=== PATIENT | female | born 1950 | race Hispanic/Latino ===

== ENCOUNTER → 2024-05-14 | Outpatient (REF) | payer MEDICARE | LOC: MAMMO 08:51 | PROVIDERS: ATTEND Family Medicine | DX: Z12.31 Encounter for screening mammogram for malignant neoplasm of breast (principal) | CPT/HCPCS: 77067 ==

== ENCOUNTER 2024-10-16 16:30 | Inpatient (IN) | payer MEDICARE ==
[~2024-10-16] VITALS: Ht 149.9 cm; Wt 40.4 kg
[2024-10-16 17:51] LABS: BASOPHILS # (AUTO) 0.1 (0.0-0.1); EOSINOPHILS # (AUTO) 0.1 (0.0-0.4); EOSINOPHILS % 1.8 % (0.0-6.0); HEMATOCRIT 26.3 % (34.2-44.1); HEMOGLOBIN 8.8 g/dL (12.0-16.0); LYMPHOCYTES # (AUTO) 1.2 (1.0-3.2); LYMPHOCYTES % 15.3 % (18.0-39.1); MEAN CORPUSCULAR HEMOGLOBIN 30.7 pg (28-32); MEAN CORPUSCULAR HGB CONC 33.5 g/dL (31-35); MEAN CORPUSCULAR VOLUME 91.6 fL (81-99); MONOCYTES # (AUTO) 0.6 (0.2-0.8); MONOCYTES % 7.9 % (4.4-11.3); NEUTROPHILS # (AUTO) 5.9 (2.1-6.9); NEUTROPHILS % 73.4 % (38.7-80.0); PLATELET COUNT 233 x10e3/uL (140-360); RED BLOOD COUNT 2.87 x10e6/uL (3.6-5.1); WHITE BLOOD COUNT 7.97 x10e3/uL (4.8-10.8)
[2024-10-16 18:11] LABS: ALBUMIN/GLOBULIN RATIO 2.4 (0.8-2.0); BILIRUBIN,TOTAL 1.3 mg/dL (0.2-1.2); CREATININE, SERUM 1.35 mg/dL (0.57-1.11); TOTAL PROTEIN 5.7 g/dL (6.5-8.1)
[2024-10-16 18:50] VITALS: PULSE 95; RESP 17; TEMP 98.2
[2024-10-16 19:58] LABS: CREATINE KINASE 49 IU/L (29-168)
[2024-10-16 20:00] VITALS: BP 110/68; PULSE 83; RESP 18; TEMP 98; O2SAT 100
[2024-10-16 20:09] LABS: TROPONIN I < 0.001 ng/mL (0-0.300)
[2024-10-16] MEDS: SODIUM CHLORIDE 0.9% 1000ML 1,000 ML IV SCH (20:20)
[2024-10-16 21:30] VITALS: BP 114/68; PULSE 86; RESP 16; TEMP 98.2; O2SAT 100
[2024-10-16] MEDS ORDERED: LOSARTAN POTASS25 MG PO (23:52)
[2024-10-17] VITALS (12 sets, daily range): BP systolic 101–138; BP diastolic 55–72; PULSE 78–96; RESP 17–18; TEMP 97.6–98.6; O2SAT 97–100
[2024-10-17 01:56] LABS: CREATINE KINASE 28 IU/L (29-168)
[2024-10-17 02:06] LABS: TROPONIN I < 0.001 ng/mL (0-0.300)
[2024-10-17 07:46] LABS: BASOPHILS # (AUTO) 0.1 (0.0-0.1); BASOPHILS % 0.9 % (0.0-1.0); EOSINOPHILS # (AUTO) 0.2 (0.0-0.4); EOSINOPHILS % 2.7 % (0.0-6.0); HEMATOCRIT 25.1 % (34.2-44.1); HEMOGLOBIN 8.1 g/dL (12.0-16.0); LYMPHOCYTES # (AUTO) 0.8 (1.0-3.2); LYMPHOCYTES % 15.1 % (18.0-39.1); MEAN CORPUSCULAR HEMOGLOBIN 30.7 pg (28-32); MEAN CORPUSCULAR HGB CONC 32.3 g/dL (31-35); MEAN CORPUSCULAR VOLUME 95.1 fL (81-99); MONOCYTES # (AUTO) 0.5 (0.2-0.8); MONOCYTES % 8.2 % (4.4-11.3); NEUTROPHILS # (AUTO) 4.1 (2.1-6.9); NEUTROPHILS % 72.6 % (38.7-80.0); PLATELET COUNT 187 x10e3/uL (140-360); RED BLOOD COUNT 2.64 x10e6/uL (3.6-5.1); WHITE BLOOD COUNT 5.58 x10e3/uL (4.8-10.8)
[2024-10-17 08:01] LABS: ALBUMIN 3.2 g/dL (3.5-5.0); ALBUMIN/GLOBULIN RATIO 2.5 (0.8-2.0); BILIRUBIN,TOTAL 1.2 mg/dL (0.2-1.2); CALCIUM 10.6 mg/dL (8.4-10.2); CREATININE, SERUM 1.31 mg/dL (0.57-1.11); TOTAL PROTEIN 4.5 g/dL (6.5-8.1)
[2024-10-17] MEDS ORDERED: HYDRALAZINE HCL 20 MG/ML VIAL IV PRN (10:15)
[2024-10-17] MEDS: POTASSIUM CHLORIDE 20 MEQ TAB CR PO ONE (11:56)
[2024-10-17] MEDS: FUROSEMIDE INJ 10 MG/ML 4 ML VIAL IV ONE (11:56)
[2024-10-17 17:24] LABS: CREATINE KINASE 29 IU/L (29-168)
[2024-10-17 17:37] LABS: TROPONIN I < 0.001 ng/mL (0-0.300)
[2024-10-17 22:17] LABS: BILIRUBIN,URINE NEGATIVE (NEGATIVE); CLARITY,URINE CLEAR (CLEAR); COLOR,URINE YELLOW (YELLOW); GLUCOSE, URINE NEGATIVE (NEGATIVE); KETONES,URINE NEGATIVE (NEGATIVE); LEUKOCYTE ESTERASE ,URINE NEGATIVE (NEGATIVE); NITRITE,URINE NEGATIVE (NEGATIVE); PH,URINE 5.5 (5 - 7); PROTEIN,URINE DIPSTICK NEGATIVE (NEGATIVE); URINE UROBILINOGEN 0.2 mg/dL (0.2 - 1)
[2024-10-17 22:26] LABS: BACTERIA,URINE FEW /HPF; EPITHELIAL CELLS,URINE FEW /LPF
[2024-10-17 22:27] LABS: MUCUS,URINE FEW
[2024-10-17 22:31] LABS: CREATININE,URINE RANDOM 25.73 mg/dL (47-110); SODIUM,URINE 97 mmol/L
[2024-10-17 22:32] LABS: TOTAL PROTEIN, URINE < 6.8 mg/dL (1-14)
[2024-10-17 22:57] LABS: EOSINOPHIL SMEAR,URINE NONE SEEN (NONE SEEN)
[2024-10-18 03:01] VITALS: BP 106/62; PULSE 87; RESP 18; TEMP 98.7; O2SAT 100
[2024-10-18 05:50] LABS: BASOPHILS % 0.5 % (0.0-1.0); EOSINOPHILS # (AUTO) 0.2 (0.0-0.4); EOSINOPHILS % 2.5 % (0.0-6.0); HEMATOCRIT 23.8 % (34.2-44.1); HEMOGLOBIN 7.8 g/dL (12.0-16.0); LYMPHOCYTES % 12.2 % (18.0-39.1); MEAN CORPUSCULAR HEMOGLOBIN 30.4 pg (28-32); MEAN CORPUSCULAR HGB CONC 32.8 g/dL (31-35); MEAN CORPUSCULAR VOLUME 92.6 fL (81-99); MONOCYTES # (AUTO) 0.6 (0.2-0.8); MONOCYTES % 7.4 % (4.4-11.3); NEUTROPHILS # (AUTO) 6.3 (2.1-6.9); NEUTROPHILS % 76.9 % (38.7-80.0); PLATELET COUNT 213 x10e3/uL (140-360); RED BLOOD COUNT 2.57 x10e6/uL (3.6-5.1); RED CELL DISTRIBUTION WIDTH 14.1 % (11.7-14.4); WHITE BLOOD COUNT 8.13 x10e3/uL (4.8-10.8)
[2024-10-18 06:18] LABS: PHOSPHORUS 3.1 MG/DL (2.3-4.7); URIC ACID 6.1 mg/dL (2.6-8.0)
[2024-10-18 06:20] LABS: ANION GAP 11.6 mmol/L (8-16); CALCIUM 11.2 mg/dL (8.4-10.2); CREATININE, SERUM 1.52 mg/dL (0.57-1.11); POTASSIUM 3.6 mmol/L (3.5-5.1)
[2024-10-18 06:40] LABS: THYROID STIMULATING HORMONE 2.009 uIU/mL (0.350-4.940)
[2024-10-18 08:00] VITALS: BP 102/65; PULSE 80; RESP 17; TEMP 98; O2SAT 100
[2024-10-18 11:44] VITALS: BP 108/51; PULSE 71; RESP 18; TEMP 98.4; O2SAT 100
[2024-10-18 16:00] VITALS: BP 110/59; PULSE 86; RESP 18; TEMP 98.5; O2SAT 98
[2024-10-18 20:00] VITALS: BP 106/62; PULSE 82; RESP 18; TEMP 98.5; O2SAT 100; O2SAT 98
[2024-10-19 05:43] LABS: BASOPHILS % 0.6 % (0.0-1.0); EOSINOPHILS # (AUTO) 0.2 (0.0-0.4); EOSINOPHILS % 2.6 % (0.0-6.0); HEMATOCRIT 22.6 % (34.2-44.1); HEMOGLOBIN 7.4 g/dL (12.0-16.0); LYMPHOCYTES % 15.7 % (18.0-39.1); MEAN CORPUSCULAR HEMOGLOBIN 30.3 pg (28-32); MEAN CORPUSCULAR HGB CONC 32.7 g/dL (31-35); MEAN CORPUSCULAR VOLUME 92.6 fL (81-99); MONOCYTES # (AUTO) 0.5 (0.2-0.8); MONOCYTES % 7.3 % (4.4-11.3); NEUTROPHILS # (AUTO) 4.7 (2.1-6.9); NEUTROPHILS % 73.3 % (38.7-80.0); PLATELET COUNT 184 x10e3/uL (140-360); RED BLOOD COUNT 2.44 x10e6/uL (3.6-5.1); RED CELL DISTRIBUTION WIDTH 14.3 % (11.7-14.4); WHITE BLOOD COUNT 6.43 x10e3/uL (4.8-10.8)
[2024-10-19 06:19] LABS: ANION GAP 11.7 mmol/L (8-16); CALCIUM 10.6 mg/dL (8.4-10.2); CREATININE, SERUM 1.47 mg/dL (0.57-1.11); POTASSIUM 3.7 mmol/L (3.5-5.1)
[2024-10-19 07:46] LABS: ABG HCO3 25 mmol/L (22-26); ABG PCO2 37 mmHg (35-45); ABG PH 7.43 (7.35-7.45); ABG PO2 49 mmHg (80-105); ABG TCO2 26
[2024-10-19 07:52] VITALS: BP 107/64; PULSE 88; RESP 18; TEMP 98.3; O2SAT 100
[2024-10-19 09:24] VITALS: BP 107/64; PULSE 88; RESP 18; TEMP 98.3; O2SAT 100
[2024-10-19 12:18] VITALS: BP 112/59; PULSE 85; RESP 18; TEMP 98.3; O2SAT 100
[2024-10-19 16:16] VITALS: BP 133/55; PULSE 84; RESP 17; TEMP 98; O2SAT 100
[2024-10-19 17:29] LABS: FERRITIN 192.86 ng/mL (4.63-204.00)
[2024-10-19 20:00] VITALS: BP 137/68; PULSE 96; RESP 18; TEMP 98.8; O2SAT 100
[2024-10-19 21:00] VITALS: BP 137/68; PULSE 96; RESP 18; TEMP 98.8; O2SAT 100
[2024-10-20] VITALS (8 sets, daily range): BP systolic 116–145; BP diastolic 56–95; PULSE 71–104; RESP 18–19; TEMP 97.6–98.6; O2SAT 97–100
[2024-10-20 06:21] LABS: BASOPHILS % 0.6 % (0.0-1.0); EOSINOPHILS # (AUTO) 0.2 (0.0-0.4); EOSINOPHILS % 2.4 % (0.0-6.0); HEMATOCRIT 23.2 % (34.2-44.1); HEMOGLOBIN 7.5 g/dL (12.0-16.0); LYMPHOCYTES # (AUTO) 0.9 (1.0-3.2); LYMPHOCYTES % 12.4 % (18.0-39.1); MEAN CORPUSCULAR HEMOGLOBIN 30.2 pg (28-32); MEAN CORPUSCULAR HGB CONC 32.3 g/dL (31-35); MEAN CORPUSCULAR VOLUME 93.5 fL (81-99); MONOCYTES # (AUTO) 0.5 (0.2-0.8); MONOCYTES % 7.6 % (4.4-11.3); NEUTROPHILS # (AUTO) 5.3 (2.1-6.9); NEUTROPHILS % 76.4 % (38.7-80.0); PLATELET COUNT 191 x10e3/uL (140-360); RED BLOOD COUNT 2.48 x10e6/uL (3.6-5.1); RED CELL DISTRIBUTION WIDTH 14.3 % (11.7-14.4); WHITE BLOOD COUNT 6.94 x10e3/uL (4.8-10.8)
[2024-10-20 06:29] LABS: HEPATITIS B SURFACE AG (P) Negative
[2024-10-20 06:51] LABS: ANION GAP 8.9 mmol/L (8-16); CALCIUM 10.4 mg/dL (8.4-10.2); CREATININE, SERUM 1.39 mg/dL (0.57-1.11); POTASSIUM 3.9 mmol/L (3.5-5.1)
[2024-10-20] MEDS ORDERED: LIDOCAINE HCL 1% 30ML-PF VIAL ONE (09:35)
[2024-10-20 10:08] LABS: INR 1.11
[2024-10-20 10:45] LABS: ANTI DNA DS ANTIBODY <1 IU/mL (0-9)
[2024-10-20 15:13] LABS: CALCIUM 11.4 mg/dL (8.7-10.3)
[2024-10-20 16:12] LABS: COMPLEMENT C3 99 mg/dL (82-167); COMPLEMENT C4 24 mg/dL (12-38)
[2024-10-20] MEDS: SODIUM FERRIC GLUCONATE COMPLX 125 MG in SODIUM CHLORIDE 0.9% 100 ML IV SCH (17:44)
[2024-10-20] MEDS: FUROSEMIDE INJ 10 MG/ML 2 ML VIAL IV ONE (17:45)
[2024-10-20 20:16] LABS: OSMOLALITY,SERUM OSMOMETER 295 mOsmol/kg (280-301); RHEUMATOID FACTOR <10.0 IU/mL (<14.0)
[2024-10-21] VITALS (7 sets, daily range): BP systolic 113–135; BP diastolic 62–77; PULSE 89–115; RESP 18–19; TEMP 97.1–98.8; O2SAT 97–100
[2024-10-21 05:05] LABS: ALPHA FETO-PROTEIN 2.4 ng/mL (0.0-9.2)
[2024-10-21 05:52] LABS: ANION GAP 11.4 mmol/L (8-16); CALCIUM 10.9 mg/dL (8.4-10.2); CREATININE, SERUM 1.35 mg/dL (0.57-1.11)
[2024-10-21 06:01] LABS: POTASSIUM 3.4 mmol/L (3.5-5.1)
[2024-10-21 07:00] LABS: ABG HCO3 20 mmol/L (22-26); ABG PCO2 34 mmHg (35-45); ABG PH 7.38 (7.35-7.45); ABG PO2 86 mmHg (80-105); ABG TCO2 21
[2024-10-21] MEDS: FUROSEMIDE INJ 10 MG/ML 2 ML VIAL IV SCH (08:59)
[2024-10-21 13:12] LABS: cANCA TITER <1:20 titer (Neg:<1:20)
[2024-10-21 14:12] LABS: ATYPICAL pANCA TITER <1:20 titer (Neg:<1:20); pANCA TITER <1:20 titer (Neg:<1:20)
[2024-10-21] MEDS: SODIUM FERRIC GLUCONATE COMPLX 125 MG in SODIUM CHLORIDE 0.9% 100 ML IV SCH (17:29)
[2024-10-21] MEDS: BISACODYL 5 MG TAB EC PO PRN (18:33)
[2024-10-22] VITALS (7 sets, daily range): BP systolic 107–126; BP diastolic 63–76; PULSE 103–114; RESP 16–19; TEMP 97.8–99.7; O2SAT 94–100
[2024-10-22 06:24] LABS: SPE ALPHA 1 GLOBULIN 0.3
[2024-10-22 06:25] LABS: SPE ALPHA 2 GLOBULIN 0.6; SPE GAMMA GLOBULIN 0.3
[2024-10-22 06:26] LABS: SPE TOTAL PROTEIN 4.9
[2024-10-22 06:27] LABS: KAPPA LIGHT CHAINS 27.5
[2024-10-22 06:28] LABS: A/G RATIO 1.5; KAPPA/LAMBDA RATIO 1.23; LAMBDA LIGHT CHAINS 22.3
[2024-10-22 09:23] LABS: ANION GAP 14.7 mmol/L (8-16); CALCIUM 11.2 mg/dL (8.4-10.2); CREATININE, SERUM 1.4 mg/dL (0.57-1.11); POTASSIUM 3.7 mmol/L (3.5-5.1)
[2024-10-22] MEDS: PSYLLIUM 6GM PACKET PO SCH (12:29)
[2024-10-22 16:11] LABS: ALPHA 1 GLOBULIN URINE PEP 4.6 % (.); ALPHA 2 GLOBULIN URINE PEP 18.3 % (.); BETA GLOBULIN URINE PEP 30.3 % (.); GAMMA GLOBULIN URINE PEP 16.7 % (.); M-SPIKE % Not Observed % (Not Observed); PROTEIN URINE PEP 13.1 mg/dL (Not Estab.)
[2024-10-22] MEDS: CALCITONIN SALMON 400 IU/2ML VIAL SC SCH (17:15)
[2024-10-23] VITALS (7 sets, daily range): BP systolic 108–135; BP diastolic 62–73; PULSE 98–115; RESP 16–20; TEMP 98.3–99.1; O2SAT 94–99
[2024-10-23 06:09] LABS: BASOPHILS % 0.3 % (0.0-1.0); HEMATOCRIT 21.3 % (34.2-44.1); LYMPHOCYTES # (AUTO) 0.8 (1.0-3.2); MEAN CORPUSCULAR HEMOGLOBIN 30.7 pg (28-32); MEAN CORPUSCULAR HGB CONC 33.3 g/dL (31-35); MEAN CORPUSCULAR VOLUME 92.2 fL (81-99); MONOCYTES # (AUTO) 0.2 (0.2-0.8); MONOCYTES % 3.2 % (4.4-11.3); NEUTROPHILS # (AUTO) 6.5 (2.1-6.9); NEUTROPHILS % 86.2 % (38.7-80.0); PLATELET COUNT 169 x10e3/uL (140-360); RED BLOOD COUNT 2.31 x10e6/uL (3.6-5.1); RED CELL DISTRIBUTION WIDTH 14.6 % (11.7-14.4); WHITE BLOOD COUNT 7.49 x10e3/uL (4.8-10.8)
[2024-10-23 06:16] LABS: HEMOGLOBIN 7.1 g/dL (12.0-16.0)
[2024-10-23 06:25] LABS: ANION GAP 13.4 mmol/L (8-16); CALCIUM 10.1 mg/dL (8.4-10.2); CREATININE, SERUM 1.29 mg/dL (0.57-1.11)
[2024-10-23 06:26] LABS: POTASSIUM 3.4 mmol/L (3.5-5.1)
[2024-10-23 08:20] LABS: LYMPHOCYTES % (MANUAL) 6 % (19-48); MONOCYTES % (MANUAL) 5 % (3.4-9.0); NEUTROPHILS % (MANUAL) 89 % (40-74); PLATELET ESTIMATE ADEQUATE; PLATELET MORPHOLOGY COMMENT NORMAL; RBC MORPHOLOGY COMMENT NORMAL
[2024-10-23] MEDS: ONDANSETRON HCL INJ 2MG/ML 2ML 2 MG/ML VIAL IV PRN (09:43)
[2024-10-23] MEDS: POLYETHYLENE GLYCOL 3350 17 GM PACK PO PRN (09:43)
[2024-10-23 13:12] LABS: BODY FLUID APPEARANCE CLOUDY; BODY FLUID COLOR RED; BODY FLUID TYPE PERITONEAL; WBC,BODY FLUID 15808 cells/uL
[2024-10-23 13:13] LABS: RBC,BODY FLUID 182000 cells/uL
[2024-10-23 13:33] LABS: LYMPHOCYTES,BODY FLUID 19 %; MONO/MACROPHG,BODY FLUID 3 %; NEUTROPHILS,BODY FLUID 78 %; TOTAL CELLS COUNTED (DIFF) 100
[2024-10-23] MEDS ORDERED: SODIUM FERRIC GLUCONATE COMPLX 125 MG in SODIUM CHLORIDE 0.9% 100 ML IV SCH (15:45)
[2024-10-23] MEDS: POTASSIUM CHLORIDE 20 MEQ TAB CR PO STA (17:38)
[2024-10-23] MEDS: IRON SUCROSE 100 MG in SODIUM CHLORIDE 0.9% 100 ML IV SCH (17:39)
[2024-10-23] MEDS: LEVOFLOXACIN 250MG/D5W 50ML 50 ML IV SCH (20:23)
[2024-10-24] VITALS (7 sets, daily range): BP systolic 103–112; BP diastolic 54–69; PULSE 91–102; RESP 18–20; TEMP 98.1–98.8; O2SAT 94–97
[2024-10-24 05:36] LABS: BASOPHILS % 0.1 % (0.0-1.0); LYMPHOCYTES # (AUTO) 0.7 (1.0-3.2); LYMPHOCYTES % 8.4 % (18.0-39.1); MEAN CORPUSCULAR HEMOGLOBIN 30.1 pg (28-32); MEAN CORPUSCULAR HGB CONC 32.9 g/dL (31-35); MEAN CORPUSCULAR VOLUME 91.5 fL (81-99); MONOCYTES # (AUTO) 0.4 (0.2-0.8); MONOCYTES % 4.5 % (4.4-11.3); NEUTROPHILS # (AUTO) 6.7 (2.1-6.9); NEUTROPHILS % 86.7 % (38.7-80.0); PLATELET COUNT 232 x10e3/uL (140-360); RED BLOOD COUNT 2.36 x10e6/uL (3.6-5.1); RED CELL DISTRIBUTION WIDTH 14.6 % (11.7-14.4); WHITE BLOOD COUNT 7.71 x10e3/uL (4.8-10.8)
[2024-10-24 05:43] LABS: HEMATOCRIT 21.6 % (34.2-44.1); HEMOGLOBIN 7.1 g/dL (12.0-16.0)
[2024-10-24 06:02] LABS: ANION GAP 14.8 mmol/L (8-16); CALCIUM 9.1 mg/dL (8.4-10.2); CREATININE, SERUM 1.22 mg/dL (0.57-1.11); POTASSIUM 3.8 mmol/L (3.5-5.1)
[2024-10-24 10:52] LABS: BAND NEUTROPHILS % (MANUAL) 5 %; LYMPHOCYTES % (MANUAL) 7 % (19-48); MONOCYTES % (MANUAL) 2 % (3.4-9.0); NEUTROPHILS % (MANUAL) 86 % (40-74); PLATELET ESTIMATE ADEQUATE; PLATELET MORPHOLOGY COMMENT NORMAL
[2024-10-24] MEDS: FUROSEMIDE INJ 10 MG/ML 2 ML VIAL IV ONE (12:21)
[2024-10-25] VITALS: BP 102/60; PULSE 90; RESP 18; TEMP 98.1; O2SAT 96
[2024-10-25 04:00] VITALS: BP 112/66; PULSE 58; RESP 18; TEMP 98.3; O2SAT 98
[2024-10-25 04:16] LABS: ANION GAP 16.1 mmol/L (8-16); CREATININE, SERUM 1.19 mg/dL (0.57-1.11)
[2024-10-25 04:30] LABS: POTASSIUM 3.1 mmol/L (3.5-5.1)
[2024-10-25 06:54] LABS: BASOPHILS % 0.1 % (0.0-1.0); EOSINOPHILS % 0.2 % (0.0-6.0); HEMOGLOBIN 7.2 g/dL (12.0-16.0); LYMPHOCYTES # (AUTO) 0.7 (1.0-3.2); LYMPHOCYTES % 7.1 % (18.0-39.1); MEAN CORPUSCULAR HEMOGLOBIN 30.5 pg (28-32); MEAN CORPUSCULAR VOLUME 89.8 fL (81-99); MONOCYTES # (AUTO) 0.6 (0.2-0.8); MONOCYTES % 6.1 % (4.4-11.3); NEUTROPHILS # (AUTO) 8.2 (2.1-6.9); NEUTROPHILS % 86.2 % (38.7-80.0); PLATELET COUNT 248 x10e3/uL (140-360); RED BLOOD COUNT 2.36 x10e6/uL (3.6-5.1); WHITE BLOOD COUNT 9.48 x10e3/uL (4.8-10.8)
[2024-10-25 07:18] LABS: HEMATOCRIT 21.2 % (34.2-44.1)
[2024-10-25 07:30] VITALS: BP 112/92; PULSE 91; RESP 20; TEMP 97.9; O2SAT 100
[2024-10-25 08:02] LABS: ANION GAP 15.2 mmol/L (8-16); CALCIUM 9.1 mg/dL (8.4-10.2); CREATININE, SERUM 1.06 mg/dL (0.57-1.11)
[2024-10-25 08:07] LABS: POTASSIUM 3.2 mmol/L (3.5-5.1)
[2024-10-25] MEDS: FUROSEMIDE INJ 10 MG/ML 2 ML VIAL IV SCH (09:16)
[2024-10-25] MEDS: METRONIDAZOLE 500MG/NS 100ML 100 ML IV SCH (09:16)
[2024-10-25 10:51] LABS: BAND NEUTROPHILS % (MANUAL) 2 %; LYMPHOCYTES % (MANUAL) 11 % (19-48); MONOCYTES % (MANUAL) 3 % (3.4-9.0); MYELOCYTES % (MANUAL) 1 % (0-0); NEUTROPHILS % (MANUAL) 81 % (40-74); REACTIVE LYMPHOCYTES 2
[2024-10-25 10:52] LABS: PLATELET ESTIMATE ADEQUATE; PLATELET MORPHOLOGY COMMENT NORMAL
[2024-10-25] MEDS: POTASSIUM CHLORIDE 20 MEQ TAB CR PO ONE (13:21)
[2024-10-25 20:00] VITALS: BP 123/75; PULSE 98; RESP 18; TEMP 98.9; O2SAT 95
[2024-10-25 20:17] VITALS: BP 112/92; PULSE 91; RESP 20; TEMP 97.9; O2SAT 100
[2024-10-26] VITALS (9 sets, daily range): BP systolic 105–132; BP diastolic 63–88; PULSE 90–128; RESP 18–19; TEMP 97–98.8; O2SAT 96–100
[2024-10-26] MEDS: METOCLOPRAMIDE HCL 10 MG/2ML VIAL IV ONE (00:49)
[2024-10-26] MEDS: ACETAMINOPHEN 325 MG TAB PO PRN (01:54)
[2024-10-26 05:03] LABS: BASOPHILS % 0.4 % (0.0-1.0); EOSINOPHILS % 0.2 % (0.0-6.0); HEMATOCRIT 23.1 % (34.2-44.1); HEMOGLOBIN 7.7 g/dL (12.0-16.0); LYMPHOCYTES # (AUTO) 0.7 (1.0-3.2); LYMPHOCYTES % 6.8 % (18.0-39.1); MEAN CORPUSCULAR HEMOGLOBIN 30.4 pg (28-32); MEAN CORPUSCULAR HGB CONC 33.3 g/dL (31-35); MEAN CORPUSCULAR VOLUME 91.3 fL (81-99); MONOCYTES # (AUTO) 0.5 (0.2-0.8); MONOCYTES % 4.5 % (4.4-11.3); NEUTROPHILS # (AUTO) 9.3 (2.1-6.9); NEUTROPHILS % 87.3 % (38.7-80.0); PLATELET COUNT 260 x10e3/uL (140-360); RED BLOOD COUNT 2.53 x10e6/uL (3.6-5.1); RED CELL DISTRIBUTION WIDTH 13.7 % (11.7-14.4)
[2024-10-26] MEDS: METOCLOPRAMIDE HCL 10 MG/2ML VIAL IV SCH (05:06)
[2024-10-26 06:53] LABS: CALCIUM 9.3 mg/dL (8.4-10.2)
[2024-10-26 06:58] LABS: POTASSIUM 3.2 mmol/L (3.5-5.1)
[2024-10-26 07:18] LABS: ANION GAP 16.2 mmol/L (8-16); CREATININE, SERUM 1.12 mg/dL (0.57-1.11)
[2024-10-26] MEDS: POTASSIUM CHLORIDE 20 MEQ TAB CR PO ONE (10:26)
[2024-10-26] MEDS: CYANOCOBALAMIN INJ 1,000 MCG/ML VIAL IM ONE (23:27)
[2024-10-27 03:13] VITALS: BP 117/63; PULSE 108; RESP 18; TEMP 96.9; O2SAT 98
[2024-10-27 05:55] LABS: BASOPHILS % 0.4 % (0.0-1.0); EOSINOPHILS % 0.3 % (0.0-6.0); LYMPHOCYTES # (AUTO) 0.7 (1.0-3.2); LYMPHOCYTES % 7.5 % (18.0-39.1); MEAN CORPUSCULAR HEMOGLOBIN 30.9 pg (28-32); MEAN CORPUSCULAR HGB CONC 34.5 g/dL (31-35); MEAN CORPUSCULAR VOLUME 89.4 fL (81-99); MONOCYTES # (AUTO) 0.4 (0.2-0.8); MONOCYTES % 3.6 % (4.4-11.3); NEUTROPHILS # (AUTO) 8.6 (2.1-6.9); NEUTROPHILS % 87.1 % (38.7-80.0); PLATELET COUNT 246 x10e3/uL (140-360); RED BLOOD COUNT 2.46 x10e6/uL (3.6-5.1); RED CELL DISTRIBUTION WIDTH 13.5 % (11.7-14.4); WHITE BLOOD COUNT 9.85 x10e3/uL (4.8-10.8)
[2024-10-27 05:59] LABS: HEMOGLOBIN 7.6 g/dL (12.0-16.0)
[2024-10-27 06:25] LABS: ANION GAP 14.1 mmol/L (8-16); CALCIUM 9.4 mg/dL (8.4-10.2); CREATININE, SERUM 1.05 mg/dL (0.57-1.11)
[2024-10-27 06:30] LABS: POTASSIUM 3.1 mmol/L (3.5-5.1)
[2024-10-27 07:51] VITALS: BP 107/56; PULSE 99; RESP 18; TEMP 98.5; O2SAT 96
[2024-10-27 08:00] VITALS: BP 107/56; PULSE 99; RESP 18; TEMP 98.5; O2SAT 96
[2024-10-27] MEDS ORDERED: METRONIDAZOLE500 MG PO (08:47)
[2024-10-27] MEDS ORDERED: ONDANSETRON ODT4 MG PO (08:47)
[2024-10-27] MEDS ORDERED: MIRALAX17 GM PO (08:47)
[2024-10-27] MEDS ORDERED: TYLENOL325 MG PO (08:47)
[2024-10-27] MEDS ORDERED: CEPHALEXIN500 MG PO (08:47)
[2024-10-27] MEDS ORDERED: SENOKOT8.6 MG PO (08:47)
[2024-10-27] MEDS ORDERED: Psyllium PO (08:47)
[2024-10-27] MEDS ORDERED: ULTRAM 50MG50 MG PO (08:47)
[2024-10-27] MEDS ORDERED: FUROSEMIDE40 MG PO (08:50)
[2024-10-27] MEDS: POTASSIUM CHLORIDE 20 MEQ TAB CR PO SCH (10:15)
[2024-10-27] MEDS: CYANOCOBALAMIN INJ 1,000 MCG/ML VIAL IM SCH (10:16)
[2024-10-27] MEDS: IRON SUCROSE 100 MG in SODIUM CHLORIDE 0.9% 100 ML IV SCH (10:16)
[2024-10-27 11:49] VITALS: BP 139/75; PULSE 94; RESP 19; TEMP 97.8; O2SAT 97
[2024-10-27 15:46] VITALS: BP 118/67; PULSE 102; RESP 17; TEMP 97.4; O2SAT 98
[2024-10-27] MEDS: POTASSIUM CHLORIDE 20 MEQ TAB CR PO STA (17:26)
[2024-10-27 20:00] VITALS: BP 116/62; PULSE 107; RESP 18; TEMP 98.7; O2SAT 97
[2024-10-28] VITALS: BP 125/65; PULSE 112; RESP 19; TEMP 98.7; O2SAT 95
[2024-10-28 04:00] VITALS: BP 128/56; PULSE 102; RESP 16; TEMP 98.7; O2SAT 94
[2024-10-28 05:48] LABS: BASOPHILS % 0.2 % (0.0-1.0); EOSINOPHILS % 0.2 % (0.0-6.0); HEMATOCRIT 23.3 % (34.2-44.1); LYMPHOCYTES # (AUTO) 0.9 (1.0-3.2); LYMPHOCYTES % 8.6 % (18.0-39.1); MEAN CORPUSCULAR HEMOGLOBIN 30.2 pg (28-32); MEAN CORPUSCULAR HGB CONC 33.9 g/dL (31-35); MEAN CORPUSCULAR VOLUME 88.9 fL (81-99); MONOCYTES # (AUTO) 0.4 (0.2-0.8); MONOCYTES % 4.1 % (4.4-11.3); NEUTROPHILS # (AUTO) 8.9 (2.1-6.9); NEUTROPHILS % 85.3 % (38.7-80.0); PLATELET COUNT 279 x10e3/uL (140-360); RED BLOOD COUNT 2.62 x10e6/uL (3.6-5.1); RED CELL DISTRIBUTION WIDTH 13.7 % (11.7-14.4); WHITE BLOOD COUNT 10.41 x10e3/uL (4.8-10.8)
[2024-10-28 05:51] LABS: HEMOGLOBIN 7.9 g/dL (12.0-16.0)
[2024-10-28 06:06] LABS: ANION GAP 12.9 mmol/L (8-16); CALCIUM 9.7 mg/dL (8.4-10.2); CREATININE, SERUM 1.04 mg/dL (0.57-1.11); POTASSIUM 3.9 mmol/L (3.5-5.1)
[2024-10-28 07:19] LABS: BAND NEUTROPHILS % (MANUAL) 1 %; LYMPHOCYTES % (MANUAL) 8 % (19-48); MONOCYTES % (MANUAL) 3 % (3.4-9.0); NEUTROPHILS % (MANUAL) 88 % (40-74); PLATELET ESTIMATE ADEQUATE; PLATELET MORPHOLOGY COMMENT NORMAL; POLYCHROMASIA FEW; TOXIC GRANULATION SLIGHT
[2024-10-28 07:51] VITALS: BP 125/60; PULSE 106; RESP 17; TEMP 98.1; O2SAT 97
[2024-10-28] MEDS: FUROSEMIDE 40 MG TAB PO SCH (09:09)
[2024-10-28 11:43] VITALS: BP 105/63; PULSE 100; RESP 20; TEMP 97.8; O2SAT 97
== END 2024-10-28 13:30 | disposition home or self-care (01) | DRG 823 ==
LOC: ER 17:54 → ERHOLD 20:06 → MED/SURG2 20:27
PROVIDERS: ADMIT Internal Medicine; ATTEND Internal Medicine
PROC: 4A133R1 Monitoring of Arterial Saturation, Peripheral, Percutaneous Approach (ICD-10-PCS; 2024-10-17)
PROC: 07B63ZX Excision of Left Axillary Lymphatic, Percutaneous Approach, Diagnostic (ICD-10-PCS; principal; 2024-10-20)
PROC: 0W9G3ZZ Drainage of Peritoneal Cavity, Percutaneous Approach (ICD-10-PCS; 2024-10-23)
DX: C82.5 Diffuse follicle center lymphoma (principal); K65.2 Spontaneous bacterial peritonitis; K56.600 Partial intestinal obstruction, unspecified as to cause; R18.8 Other ascites; N17.9 Acute kidney failure, unspecified; K56.7 Ileus, unspecified; Z68.1 Body mass index [BMI] 19.9 or less, adult; M35.09 Sjogren syndrome with other organ involvement; E86.0 Dehydration; E87.6 Hypokalemia; D50.9 Iron deficiency anemia, unspecified; E83.52 Hypercalcemia; R63.6 Underweight; I12.9 Hypertensive chronic kidney disease with stage 1 through stage 4 chronic kidney disease, or unspecified chronic kidney disease; N18.30 Chronic kidney disease, stage 3 unspecified; K11.20 Sialoadenitis, unspecified; R53.81 Other malaise; R60.0 Localized edema; B96.20 Unspecified Escherichia coli [E. coli] as the cause of diseases classified elsewhere
CPT/HCPCS: 36415; 38505; 49083; 71045; 71250; 74018; 74176; 74470; 76705; 76770; 76942; 80048; 80053; 81001; 81015; 82040; 82105; 82378; 82550; 82570; 82607; 82728; 82746; 82805; 82948; 83540; 83615; 83690; 83735; 83880; 83930; 83970; 84100; 84156; 84157; 84165; 84166; 84300; 84443; 84466; 84484; 84550; 85025; 85045; 85610; 86021; 86039; 86160; 86225; 86235; 86301; 86304; 86431; 87070; 87186; 87205; 87340; 88112; 88184; 88304; 88305; 89051; 93005; 93971; 94799; 99284; J0696; J1756; J1940; J1956; J2003; J2405; J2470; J2765; J2916; J3420; J7030; J7050